=== PATIENT | female | born 1930 | race African-American/Black ===

== ENCOUNTER 2017-11-21 13:23 | Emergency (ER) | payer MEDICARE | END 2017-11-21 15:26 | disposition home or self-care (01) | LOC: ER 13:23 | DX: S70.01XA Contusion of right hip, initial encounter (principal); I10 Essential (primary) hypertension; F03.90 Unspecified dementia, unspecified severity, without behavioral disturbance, psychotic disturbance, mood disturbance, and anxiety; E78.00 Pure hypercholesterolemia, unspecified; M19.90 Unspecified osteoarthritis, unspecified site; Z90.710 Acquired absence of both cervix and uterus; W01.198A Fall on same level from slipping, tripping and stumbling with subsequent striking against other object, initial encounter; Y93.89 Activity, other specified; Y99.8 Other external cause status; Y92.89 Other specified places as the place of occurrence of the external cause | CPT/HCPCS: 73502; 99284 ==